=== PATIENT | female | born 1960 | race Caucasian/White ===

== ENCOUNTER → 2018-12-10 | Outpatient (CLI) | payer OTHER, BC | END | disposition home or self-care (01) | LOC: LAB EV 10:05 → LAB SHORT 10:05 | DX: J02.9 Acute pharyngitis, unspecified (principal) | CPT/HCPCS: 87081 ==

== ENCOUNTER 2021-12-05 00:17 | Day surgery (SDC) | payer OTHER, BC ==
[2021-12-05] MEDS ORDERED: ELIQUIS2.5 M1 PO (16:00)
[2021-12-05] MEDS ORDERED: TRIA50 (16:00)
[2021-12-05] MEDS ORDERED: VERA120 PO (16:01)
== END 2021-12-05 17:50 | disposition home or self-care (01) ==
LOC: ATC 00:17
DX: C57.02 Malignant neoplasm of left fallopian tube (principal); Z17.0 Estrogen receptor positive status [ER+]; D25.2 Subserosal leiomyoma of uterus; I10 Essential (primary) hypertension; Z87.891 Personal history of nicotine dependence; Z88.5 Allergy status to narcotic agent; Z79.01 Long term (current) use of anticoagulants; Z79.899 Other long term (current) drug therapy
CPT/HCPCS: M0222